=== PATIENT | female | born 1950 ===

== ENCOUNTER 2022-11-13 06:22 | Day surgery (SDC) | payer OTHER ==
[~2022-11-13 06:22] MED LIST: CARDIZEM CD120 MG PO; COZAAR100 MG PO; LEVO-T75 MCG PO; METFORMIN HCL500 M3 PO
[2022-11-13] MEDS ORDERED: MACROBID 100 M100 MG PO (10:09)
[2022-11-13] MEDS ORDERED: TRAM1TAB98 PO (10:10)
== END 2022-11-13 12:20 | disposition home or self-care (01) ==
LOC: CIR.AMB 06:22
PROVIDERS: ATTEND Obstetrics & Gynecology Gynecology
DX: N81.11 Cystocele, midline (principal); N81.5 Vaginal enterocele; Z20.822 Contact with and (suspected) exposure to COVID-19